=== PATIENT | female | born 1950 | race American Indian/Alaskan Native ===

== ENCOUNTER 2019-02-10 13:52 | Emergency (ER) | payer OTHER ==
[~2019-02-10] VITALS: Ht 162.6 cm; Wt 72.6 kg
[~2019-02-10 13:52] MED LIST: ALBU90OI6 INH; ASCO500 PO; ASPI81EC PO; Bystolic5 MG PO; CALCAVITDA PO; CYAN100 PO; ESTR2 PO; FLUT.05NI; IPRAOI INH; LOSA50 PO; LOSHYD100 PO; MULVITB&C PO; MULVITMIND PO; Norco 5-325 Ta1 EACH PO; OXYGEN; TOCO1000 PO; VITAMIN D32000 UNI2 PO; Zofran4 MG PO
[2019-02-10 15:00] LABS: BASOPHILS ABSOLUTE AUTO 0.09 K/mm3 (0.00-0.23); BASOPHILS PERCENT AUTO 1 % (0-2); EOSINOPHILS ABSOLUTE AUTO 0.12 K/mm3 (0.00-0.68); EOSINOPHILS PERCENT AUTO 1 % (0-6); Hematocrit 38.8 % (33.0-51.0); Hemoglobin 12.6 g/dL (11.5-16.0); IMMATURE GRAN ABSOLUTE AUTO 0.08 K/mm3 (0.00-0.10); IMMATURE GRAN PERCENT AUTO 1 % (0-1); LYMPHOCYTES ABSOLUTE AUTO 1.63 K/mm3 (0.84-5.20); LYMPHOCYTES PERCENT AUTO 10 % (21-46); MONOCYTES ABSOLUTE AUTO 0.85 K/mm3 (0.16-1.47); MONOCYTES PERCENT AUTO 5 % (4-13); Mean Corpuscular HGB 32.6 pg (26.0-34.0); Mean Corpuscular HGB Conc 32.5 g/dL (31.5-36.5); Mean Corpuscular Volume 100 fL (80-100); NEUTROPHILS ABSOLUTE AUTO 13.75 K/mm3 (1.96-9.15); NEUTROPHILS PERCENT AUTO 83 % (41-73); Platelet Count 315 K/mm3 (150-400); RDW Coefficient Variation 13.3 % (11.7-14.2); RDW Standard Deviation 49.3 fL (35.1-46.3); Red Blood Cell Count 3.87 M/mm3 (3.80-5.20); White Blood Cell Count 16.52 K/mm3 (4.00-11.30)
[2019-02-10 15:30] LABS: Alanine Aminotransfer (ALT/SGP 32 U/L (12-78); Albumin, Blood 3.6 g/dL (3.4-5.0); Albumin/Globulin Ratio 0.7 (0.8-1.8); Alk Phos 72 U/L (50-136); Anion Gap 4 mmol/L (6-16); Aspartate Aminotrans (AST/SGOT 23 U/L (12-37); Bilirubin, Total 0.4 mg/dL (0.1-1.0); Blood Urea Nitrogen 12 mg/dL (8-24); Bun/Creatinine Ratio 15.4 (12.0-20.0); CO2, Blood 31 mmol/L (21-32); Calcium, Blood 9.4 mg/dL (8.5-10.1); Chloride, Blood 101 mmol/L (98-108); Creatinine, Blood 0.78 mg/dL (0.40-1.00); Glomerular Filtration Rate >60 (60-); Glucose, Blood 109 mg/dL (70-99); Sodium, Blood 136 mmol/L (136-145); Total Protein, Blood 8.6 g/dL (6.4-8.2); Troponin I <0.015 ng/mL (0.000-0.040)
== END 2019-02-10 20:37 | disposition home or self-care (01) ==
LOC: ER 13:52
PROVIDERS: Physician Assistant
DX: J84.10 Pulmonary fibrosis, unspecified (principal); I10 Essential (primary) hypertension; Z88.0 Allergy status to penicillin; Z88.8 Allergy status to other drugs, medicaments and biological substances; Z79.82 Long term (current) use of aspirin; Z79.899 Other long term (current) drug therapy
CPT/HCPCS: 36415; 71046; 71260; 80053; 83690; 84484; 85025; 85379; 93005; 93010; 99285-25; Q9967

== ENCOUNTER 2019-05-19 09:51 | Emergency (ER) | payer OTHER ==
[~2019-05-19] VITALS: Ht 162.6 cm; Wt 78.5 kg
[2019-05-19 10:29] LABS: BASOPHILS ABSOLUTE AUTO 0.08 K/mm3 (0.00-0.23); BASOPHILS PERCENT AUTO 1 % (0-2); EOSINOPHILS ABSOLUTE AUTO 0.28 K/mm3 (0.00-0.68); EOSINOPHILS PERCENT AUTO 3 % (0-6); Hematocrit 39.9 % (33.0-51.0); Hemoglobin 12.4 g/dL (11.5-16.0); IMMATURE GRAN ABSOLUTE AUTO 0.04 K/mm3 (0.00-0.10); IMMATURE GRAN PERCENT AUTO 0 % (0-1); LYMPHOCYTES ABSOLUTE AUTO 2.16 K/mm3 (0.84-5.20); LYMPHOCYTES PERCENT AUTO 20 % (21-46); MONOCYTES ABSOLUTE AUTO 0.92 K/mm3 (0.16-1.47); MONOCYTES PERCENT AUTO 8 % (4-13); Mean Corpuscular HGB Conc 31.1 g/dL (31.5-36.5); Mean Corpuscular Volume 103 fL (80-100); Mean Platelet Volume 10.2 fL (9.1-12.4); NEUTROPHILS ABSOLUTE AUTO 7.44 K/mm3 (1.96-9.15); NEUTROPHILS PERCENT AUTO 68 % (41-73); Platelet Count 245 K/mm3 (150-400); RDW Coefficient Variation 14.6 % (11.7-14.2); RDW Standard Deviation 55.6 fL (35.1-46.3); Red Blood Cell Count 3.87 M/mm3 (3.80-5.20); White Blood Cell Count 10.92 K/mm3 (4.00-11.30)
[2019-05-19 10:55] LABS: Alanine Aminotransfer (ALT/SGP 179 U/L (12-78); Albumin, Blood 3.6 g/dL (3.4-5.0); Albumin/Globulin Ratio 0.9 (0.8-1.8); Alk Phos 104 U/L (50-136); Anion Gap 10 mmol/L (6-16); Aspartate Aminotrans (AST/SGOT 107 U/L (12-37); Bilirubin, Total 0.9 mg/dL (0.1-1.0); Blood Urea Nitrogen 24 mg/dL (8-24); Bun/Creatinine Ratio 17.9 (12.0-20.0); CO2, Blood 26 mmol/L (21-32); Calcium, Blood 8.9 mg/dL (8.5-10.1); Chloride, Blood 104 mmol/L (98-108); Creatinine, Blood 1.34 mg/dL (0.40-1.00); Globulin, Blood 4.1 g/dL (2.2-4.0); Glomerular Filtration Rate 42 (60-); Glucose, Blood 111 mg/dL (70-99); Potassium, Blood 4.3 mmol/L (3.5-5.5); Sodium, Blood 140 mmol/L (136-145); Total Protein, Blood 7.7 g/dL (6.4-8.2); Troponin I <0.015 ng/mL (0.000-0.040)
[2019-05-19] MEDS ORDERED: Lasix40 MG PO (13:56)
== END 2019-05-19 14:21 | disposition home or self-care (01) ==
LOC: ER 09:51
PROVIDERS: Emergency Medicine
DX: I11.0 Hypertensive heart disease with heart failure (principal); I50.9 Heart failure, unspecified; J84.10 Pulmonary fibrosis, unspecified; Z79.899 Other long term (current) drug therapy
CPT/HCPCS: 36415; 51702; 71046; 71260; 76705; 80053; 83690; 83880; 84484; 85025; 93005; 93010; 94640; 96374-59; 99284-25; J1940; Q9967

== ENCOUNTER 2019-06-07 10:29 | Emergency (ER) | payer OTHER ==
[~2019-06-07] VITALS: Ht 162.6 cm; Wt 74.8 kg
[~2019-06-07 10:29] MED LIST changes: +Lasix40 MG PO
[2019-06-07 11:08] LABS: BASOPHILS ABSOLUTE AUTO 0.07 K/mm3 (0.00-0.23); BASOPHILS PERCENT AUTO 1 % (0-2); EOSINOPHILS ABSOLUTE AUTO 0.16 K/mm3 (0.00-0.68); EOSINOPHILS PERCENT AUTO 2 % (0-6); Hematocrit 42.6 % (33.0-51.0); Hemoglobin 13.1 g/dL (11.5-16.0); IMMATURE GRAN ABSOLUTE AUTO 0.02 K/mm3 (0.00-0.10); IMMATURE GRAN PERCENT AUTO 0 % (0-1); LYMPHOCYTES ABSOLUTE AUTO 2.18 K/mm3 (0.84-5.20); LYMPHOCYTES PERCENT AUTO 26 % (21-46); MONOCYTES ABSOLUTE AUTO 0.53 K/mm3 (0.16-1.47); MONOCYTES PERCENT AUTO 6 % (4-13); Mean Corpuscular HGB 30.5 pg (26.0-34.0); Mean Corpuscular HGB Conc 30.8 g/dL (31.5-36.5); Mean Corpuscular Volume 99 fL (80-100); Mean Platelet Volume 10.5 fL (9.1-12.4); NEUTROPHILS ABSOLUTE AUTO 5.49 K/mm3 (1.96-9.15); NEUTROPHILS PERCENT AUTO 65 % (41-73); Platelet Count 232 K/mm3 (150-400); RDW Coefficient Variation 13.5 % (11.7-14.2); RDW Standard Deviation 49.6 fL (35.1-46.3); White Blood Cell Count 8.45 K/mm3 (4.00-11.30)
[2019-06-07 11:33] LABS: Alanine Aminotransfer (ALT/SGP 43 U/L (12-78); Albumin, Blood 3.7 g/dL (3.4-5.0); Albumin/Globulin Ratio 0.8 (0.8-1.8); Alk Phos 78 U/L (50-136); Anion Gap 10 mmol/L (6-16); Aspartate Aminotrans (AST/SGOT 27 U/L (12-37); Bilirubin, Total 0.9 mg/dL (0.1-1.0); Blood Urea Nitrogen 23 mg/dL (8-24); Bun/Creatinine Ratio 19.3 (12.0-20.0); CO2, Blood 27 mmol/L (21-32); Chloride, Blood 97 mmol/L (98-108); Creatinine, Blood 1.19 mg/dL (0.40-1.00); Globulin, Blood 4.5 g/dL (2.2-4.0); Glomerular Filtration Rate 48 (60-); Glucose, Blood 132 mg/dL (70-99); Potassium, Blood 3.7 mmol/L (3.5-5.5); Sodium, Blood 134 mmol/L (136-145); Total Protein, Blood 8.2 g/dL (6.4-8.2); Troponin I <0.015 ng/mL (0.000-0.040)
--- NOTE | 2019-06-07 19:26 | NUR ---
VISIT TO PT AND HER IN ER#10 AFTER CASE CONFERENCE WITH PT'S RN. DINORAH AND JOSE ARE WELL KNOWN TO ME FROM PREV PAL [facility]ARE VISITS AND F/U EMAILS/CALLS. I HAVE BEEN IN CONTACT WITH DINORAH REGULARLY SINCE LAST SPRING. UPON ENTERING THE ROOM I NOTE A SIGNIFICANT CHANGE IN HER APPEARANCE WITH FACIAL SWELLING, RASPY VOICE AND MORE PRONOUNCED DYSPNEA AT REST. I HAD AN EMAIL FROM VEENA ON 05/27/19 GIVING ME AN UPDATE ON HER INCREASED S/S, ER VISIT THREE WEEKS AGO, WEIGHT GAIN AND ARIADNA LE EDEMA, TREATMENT AND IMPROVEMENT WITH DIURETICS. AT THAT TIME WE REVIEWED TOPICS/QUESTIONS FOR HER NEXT PCP APPOINTMENT, WHICH SHE HAD WITH DR CUTLER TODAY, AND WAS SENT TO ER WITH WORSENING RESPIRATORY S/S. TESTING IN ER INDICATE NO NEW ISSUES SINCE LAST ER VISIT. MANY OF THE TOPICS DISCUSSED TODAY WERE A CONTINUATION OF PREVIOUS CONVERSATIONS. WE DISCUSSED HER GOALS, WHAT QUALITY OF LIFE LOOKED LIKE TO HER, OPTIONS, S/S MANAGEMENT, PRACTICAL SOLUTIONS TO ISSUES SHE IS HAVING AT HOME DUE TO HER RESPIRATORY COMPROMISE. DINORAH DESCRIBES A RAPID WORSENING OF HER PULMONARY FIBROSIS S/S SINCE THANKS WHEN SHE COULD TIN ROOFER THE KITCHEN AND HELP HER PREPARE THE MEAL. SHE REPORTS SHE CAN ONLY WALK AROUND 10 FEET AT HOME WITHOUT HAVING TO SIT AND REST AT HOME. SHOWERING, EVEN WITH A TUB BENCH AND HER 'S HELP IS NO LONGER POSSIBLE SHE "LOOSES HER AIR" VERY QUICKLY AND AT THAT POINT CANNOT EVEN STAY SITTING UP. WE DISCUSSED ALL THE OPTIONS HER DR'S HAVE OFFERED INCLUDING EVALUATION FOR LUNG TRANSPLANT AND TODAY, HER VISIT WITH HER PCP AND THEIR CONVERSATION RE: HOSPICE. DINORAH AND JOSE'S QUESTIONS RE: HOSPICE ANSWERED AND HOSPICE CARE DISCUSSED AT LENGTH. THEY WOULD LIKE TO PURSUE HOSPICE CARE AT THIS TIME AND TALK TO A SURGICAL FORCEPS FABRICATOR WHO WOULD SET THAT UP FOR THEM. THEY DO NOT HAVE A PREFERENCE OF AGENCY BUT WOULD LIKE A LOCAL AGENCY WHO CAN BE AVAILABLE TO EVAL/ADMIT TO SERVICE IN THE NEXT DAY OR SO. IN CONTACTING AGENCIES, [facility] AVAILABLE TOMORROW OR THURSDAY. [facility] CLEANING SUPERVISOR, CALLED TO VISIT WITH THEM BEFORE D/C FOR COORDINATION OF HOPICE SERVICE. TIBURCIO COMPLETED WITH DINORAH, WHO IS VERY CLEAR AFTER VISIT THAT SHE DOES NOT WANT CPR, DOES NOT WANT INTUBATION AND HER JOSE IS HER SURROGATE DECISION MAKER IF SHE IS UNABLE TO COMMUNICATE HER WISHES. SHE WANTS COMFORT MEASURES ONLY AT THIS TIME. I SPOKE WITH DR PEACE RE: MY VISIT, AND PT'S WISHES. POLST SIGNED BY , PROCESSED AND GIVEN TO JOSE FOR HOME. COPIES OF NEW POLST FAXED TO DR IRIZARRY, DR CUTLER AND MEDICAL RECORDS. COPIES MADE OF POLST AND LETTER RE: HOSPICE FROM DR EDWARDS AND GIVEN TO HOSPICE. PT TO RESTART PREDNISONE PER DR IRIZARRY'S RECOMMENDATION AND HAS 10 MG TABS AT HOME FOR THE NEXT FEW DAYS. SHE DOES STRUGGLE WITH ANXIETY IN HER BREATHLESSNESS AND WOULD BENEFIT FROM ATIVAN PRN AT HOME. SHE IS APPROPRIATELY TEARFUL DURING OUR VISIT IN EXPRESSING HER FEELING THAT HER BODY IS SHUTTING DOWN AND SAYING "DONE". AFTER MY VISIT ENDED AND HOSPICE REP IN TALKING TO PT/, REPORT GIVEN TO PT'S RN.
== END 2019-06-07 15:27 | disposition home or self-care (01) ==
LOC: ER 10:29
PROVIDERS: Emergency Medicine
DX: R06.00 Dyspnea, unspecified (principal); I10 Essential (primary) hypertension; Z88.0 Allergy status to penicillin; Z88.8 Allergy status to other drugs, medicaments and biological substances; Z79.899 Other long term (current) drug therapy; Z79.82 Long term (current) use of aspirin; Z79.51 Long term (current) use of inhaled steroids
CPT/HCPCS: 36415; 71046; 80053; 83880; 84484; 85025; 93005; 93010; 99284-25

== ENCOUNTER 2019-10-31 12:16 | Observation (INO) | payer OTHER ==
[~2019-10-31] VITALS: Ht 162.6 cm; Wt 71.7 kg
[~2019-10-31 12:16] MED LIST changes: -ASPI81EC PO; +ATROVENT HFA12.9 GM INH; +Aspirin EC81 MG PO; +B-121000 MC4 PO; -CALCAVITDA PO; -CYAN100 PO; +Daily Multiple1 EACH PO; -IPRAOI INH; -MULVITMIND PO; +OYSTER SHELL 51 EACH PO
[2019-10-31 13:09] LABS: BASOPHILS ABSOLUTE AUTO 0.01 K/mm3 (0.00-0.23); BASOPHILS PERCENT AUTO 0 % (0-2); EOSINOPHILS ABSOLUTE AUTO 0.01 K/mm3 (0.00-0.68); EOSINOPHILS PERCENT AUTO 0 % (0-6); Hematocrit 52.6 % (33.0-51.0); Hemoglobin 16.5 g/dL (11.5-16.0); IMMATURE GRAN ABSOLUTE AUTO 0.22 K/mm3 (0.00-0.10); IMMATURE GRAN PERCENT AUTO 2 % (0-1); LYMPHOCYTES ABSOLUTE AUTO 0.77 K/mm3 (0.84-5.20); LYMPHOCYTES PERCENT AUTO 5 % (21-46); MONOCYTES PERCENT AUTO 4 % (4-13); Mean Corpuscular HGB 33.4 pg (26.0-34.0); Mean Corpuscular HGB Conc 31.4 g/dL (31.5-36.5); Mean Corpuscular Volume 107 fL (80-100); Mean Platelet Volume 10.6 fL (9.1-12.4); NEUTROPHILS ABSOLUTE AUTO 13.05 K/mm3 (1.96-9.15); NEUTROPHILS PERCENT AUTO 89 % (41-73); NRBC ABSOLUTE 0.06 K/mm3 (0.00-0.02); NRBC Auto 0.4 /100 WBC (0.0-0.2); Platelet Count 190 K/mm3 (150-400); RDW Standard Deviation 55.3 fL (35.1-46.3); Red Blood Cell Count 4.94 M/mm3 (3.80-5.20); White Blood Cell Count 14.66 K/mm3 (4.00-11.30)
[2019-10-31 13:29] LABS: Albumin, Blood 3.7 g/dL (3.4-5.0); Bilirubin, Total 1.3 mg/dL (0.1-1.0); Bun/Creatinine Ratio 40.4 (12.0-20.0); Calcium, Blood 9.2 mg/dL (8.5-10.1); Creatinine, Blood 1.36 mg/dL (0.40-1.00); Globulin, Blood 3.8 g/dL (2.2-4.0); Potassium, Blood 4.1 mmol/L (3.5-5.5); Total Protein, Blood 7.5 g/dL (6.4-8.2); Troponin I 0.017 ng/mL (0.000-0.040)
[2019-10-31] MEDS ORDERED: NEBI10 PO ×2 (14:48→20:04)
[2019-10-31] MEDS ORDERED: PRED20 PO (14:48)
[2019-10-31] MEDS ORDERED: BUME2 (14:49)
[2019-10-31] MEDS ORDERED: Prednisone20 MG PO (20:01)
[2019-10-31] MEDS ORDERED: OMEP20ER PO (20:02)
[2019-10-31] MEDS ORDERED: BUME1 PO (20:07)
[2019-10-31] MEDS ORDERED: LORA.5 PO (20:08)
--- NOTE | 2019-11-01 04:58 | NUR ---
SHIFT SUMMARY PT WAS NEW ER ADMIT THIS SHIFT, REPORT REC FROM YUSRA RODRÍGUEZ @ 1845, PT ARRIVED TO ROOM @ 1940 AND XFER'ED TO BSC (ST PIVOT) THEN TO BED W/ST BY ASSIST. PT SLEPT T/O MOST OF THE NIGHT WAKING A FEW TIMES TO USE BSC, BECOMES VERY SOB W/ANY ACTIVITY. REC ORDER TO CONTINUE PT'S HOME RESP MEDS & PT HAD TX @ 0300 AND SLEPT AFTERWARD, PT SLEEPING AT THIS TIME, CALL LIGHT IN REACH, WILL CONT TO MONITOR UNTIL REPORT GIVEN TO DAY RN.
[2019-11-01 05:25] LABS: BASOPHILS ABSOLUTE AUTO 0.04 K/mm3 (0.00-0.23); BASOPHILS PERCENT AUTO 0 % (0-2); EOSINOPHILS ABSOLUTE AUTO 0.01 K/mm3 (0.00-0.68); EOSINOPHILS PERCENT AUTO 0 % (0-6); Hematocrit 50.8 % (33.0-51.0); Hemoglobin 16.1 g/dL (11.5-16.0); IMMATURE GRAN ABSOLUTE AUTO 0.32 K/mm3 (0.00-0.10); IMMATURE GRAN PERCENT AUTO 2 % (0-1); LYMPHOCYTES ABSOLUTE AUTO 1.12 K/mm3 (0.84-5.20); LYMPHOCYTES PERCENT AUTO 8 % (21-46); MONOCYTES ABSOLUTE AUTO 0.99 K/mm3 (0.16-1.47); MONOCYTES PERCENT AUTO 7 % (4-13); Mean Corpuscular HGB 33.6 pg (26.0-34.0); Mean Corpuscular HGB Conc 31.7 g/dL (31.5-36.5); Mean Corpuscular Volume 106 fL (80-100); Mean Platelet Volume 10.9 fL (9.1-12.4); NEUTROPHILS ABSOLUTE AUTO 11.55 K/mm3 (1.96-9.15); NEUTROPHILS PERCENT AUTO 82 % (41-73); NRBC ABSOLUTE 0.07 K/mm3 (0.00-0.02); NRBC Auto 0.5 /100 WBC (0.0-0.2); Platelet Count 157 K/mm3 (150-400); RDW Coefficient Variation 13.8 % (11.7-14.2); RDW Standard Deviation 54.5 fL (35.1-46.3); Red Blood Cell Count 4.79 M/mm3 (3.80-5.20); White Blood Cell Count 14.03 K/mm3 (4.00-11.30)
[2019-11-01 05:57] LABS: Bun/Creatinine Ratio 45.9 (12.0-20.0); Calcium, Blood 8.6 mg/dL (8.5-10.1); Creatinine, Blood 1.22 mg/dL (0.40-1.00); Potassium, Blood 4.5 mmol/L (3.5-5.5)
--- NOTE | 2019-11-01 09:36 | NUR ---
INITIAL [facility] VIST. Juana is well known to my from out patient pulmonary rehab and OP palliative care follow up for past year or more. She is sitting at the side of the bed, dyspnic but able to converse. She reports feeling like she is in a fog. We spoke about her s/s, wishes and desired plan of care. She would like to return home as soon as possible and would like hospice support for herself and her , Remigio, in their home. She has a very long hx of pulmonary fibrosis, more than 15 years and in recent years development of cor pulmonale. She feels the lasix given here since admission has helped her breathing and LE edema. She has 3+ pitting edema on the right and 2+ pitting edema on the left. She is clearly processing thought and speech much slower than her normal state but is alert and oriented to person, place, time and situation. She confirms her desire for s/s management but no life prolonging interventions or resuscitation. With her permission I spoke to Remigio about this by phone this am. I spoke to , RN and Bonnie GUAJARDO about my visit and pt/ request. Remigio is not certain they would want to have [facility] again but is weighing options. He was given the names of all three hospice agencies serving our area. Permission obtained for him to visit [place] thru , unit coordinater, charge and customs house broker. Screening staff will be given info to allow Remigio in to visit when he arrives. Plan to meet with pt and Remigio again later this am. CM will also plan to visit for d/c planning and arrangement of hospice care at home.
--- NOTE | 2019-11-01 13:14 | NUR ---
Echocardiogram completed.
--- NOTE | 2019-11-01 18:40 | NUR ---
SHIFT SUMMARY: A&O X 3, PLEASANT BUT A BIT ANXIOUS AT TIMES. ON O2 @ 3-4 L/MIN NC, MAGANA, NEEDS PROLONGED RECOVERY TIME WITH ANY ACTIVITY. DENIED PAIN, NAUSEA. UP TO BSC WITH SBA. PLAN IS TO D/C HOME TOMORROW WITH HOSPICE.
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
--- NOTE | 2019-11-02 03:21 | NUR ---
FIELD CROP HARVEST WORKER SUMMARY PT ON COMFORT CARE, A/O. PT HAS SLEPT WELL TONIGHT. PT ABLE TO REPOSITION SELF. NO ACUTE CHANGES.
[2019-11-02] MEDS ORDERED: CLOT10 MT (10:48)
[2019-11-02] MEDS ORDERED: FURO40 PO (10:49)
[2019-11-02] MEDS ORDERED: SENNA PLUS TAB1 EACH PO (10:53)
[2019-11-02] MEDS ORDERED: MORP20L PO (10:53)
== END 2019-11-02 11:41 | disposition hospice, home (50) ==
LOC: ER 12:16 → MEDS 12:17 → ER 17:03 → MEDS 17:03 → ENPENDDIS 11-02 11:22 → MEDS 11-02 11:41
PROVIDERS: Physician Assistant; ADMIT Internal Medicine
DX: J84.10 Pulmonary fibrosis, unspecified (principal); J96.21 Acute and chronic respiratory failure with hypoxia; I27.81 Cor pulmonale (chronic); N17.9 Acute kidney failure, unspecified; I27.29 Other secondary pulmonary hypertension; K20.9 Esophagitis, unspecified; I73.00 Raynaud's syndrome without gangrene; Z66 Do not resuscitate; R54 Age-related physical debility; I12.9 Hypertensive chronic kidney disease with stage 1 through stage 4 chronic kidney disease, or unspecified chronic kidney disease; E11.22 Type 2 diabetes mellitus with diabetic chronic kidney disease; N18.3 Chronic kidney disease, stage 3 (moderate); Z88.0 Allergy status to penicillin; Z88.8 Allergy status to other drugs, medicaments and biological substances; Z79.899 Other long term (current) drug therapy; Z79.82 Long term (current) use of aspirin
CPT/HCPCS: 36415; 71045; 80048; 80053; 83690; 83880; 84484; 85025; 93005; 93010; 93306; 94640; 94644; 94760; 96374; 99285-25; A9270-GY; G0378; J1650; J1940; J7512